=== PATIENT | female | born 1975 | race Caucasian/White ===

== ENCOUNTER → 2023-06-10 08:02 | Outpatient (REF) | payer BC, SELFPAY | LOC: WDC 08:02 | PROVIDERS: ATTENDING PHYSICIAN Physician Assistant Medical | DX: Z12.31 Encounter for screening mammogram for malignant neoplasm of breast (principal) | CPT/HCPCS: 77063; 77067 ==

== ENCOUNTER → 2024-10-19 08:06 | Outpatient (REF) | payer BC, SELFPAY ==
[2024-10-19 09:13] LABS: Hematocrit 40.7 % (37.0-47.0); Hemoglobin 13.0 g/dL (12.0-16.0); Mean Corp Hgb Conc. 31.9 g/dL (33.0-37.0); Mean Corpuscular Volume 82.2 fL (81.0-99.0); Nucleated Red Blood Cells % 0 %; Platelet Count 300 10^3/uL (130-400); Red Cell Dist. Width 13.9 % (11.5-14.5)
[2024-10-19 09:52] LABS: Free T3 3.37 pg/ml (2.77-5.27)
[2024-10-19 09:56] LABS: ALT (SGPT) 12 U/L (0-35); AST (SGOT) 16 U/L (14-36); Albumin 4.8 g/dl (3.5-5.0); Alkaline Phosphatase 57 U/L (38-126); Blood Urea Nitrogen 17 mg/dl (7-17); Calcium 8.8 mg/dl (8.4-10.2); Carbon Dioxide 24 mmol/L (22-30); Chloride 106 mmol/L (98-107); Glucose 95 mg/dl (70-99); HDL Cholesterol 47 mg/dl; Iron 64 ug/dl (37-170); LDL Cholesterol, Calculated 115 mg/dl; Potassium 4.9 mmol/L (3.5-5.1); Sodium 141 mmol/L (135-145); Total Protein 7.3 g/dl (6.3-8.2); Very Low Density Lipoprotein 21 mg/dl (0-30); eGFR > 60.00
[2024-10-19 10:06] LABS: TSH 3.99 uIU/ml (0.47-4.68)
[2024-10-19 10:10] LABS: Ferritin 9.6 ng/ml (6.24-137)
== END ==
LOC: REG 08:06
PROVIDERS: ATTENDING PHYSICIAN Physician Assistant Medical
DX: Z00.00 Encounter for general adult medical examination without abnormal findings (principal); R79.0 Abnormal level of blood mineral; R79.89 Other specified abnormal findings of blood chemistry; R03.0 Elevated blood-pressure reading, without diagnosis of hypertension
CPT/HCPCS: 36415; 80053; 80061; 82728; 83540; 84439; 84443; 84481; 85025

== ENCOUNTER → 2024-12-15 08:05 | Outpatient (REF) | payer BC, SELFPAY | LOC: WDC 08:05 | PROVIDERS: ATTENDING PHYSICIAN Physician Assistant Medical | DX: Z12.31 Encounter for screening mammogram for malignant neoplasm of breast (principal) | CPT/HCPCS: 77063; 77067 ==